=== PATIENT | female | born 1950 | race African-American/Black ===

== ENCOUNTER 2019-07-09 11:20 | Emergency (ER) | payer MEDICARE, OTHER ==
[~2019-07-09] VITALS: Ht 160 cm; Wt 59.0 kg
[~2019-07-09 11:20] MED LIST: ALBUTEROL SULF8.5 GM INH; AZITHROMYCIN250 MG ORAL; BACTRIM DS TAB1 EAC1 ORAL; KEFLEX500 MG ORAL; NORCO 5-325 TA1 EACH ORAL; PREDNISONE20 MG ORAL; TRAMADOL HCL50 MG ORAL
[2019-07-09 11:31] VITALS: BP 102/72
--- NOTE | 2019-07-09 11:33 | NUR ---
ED Nurse Note: pt from home walked in c/o rt neck shoulder and arm pain denies and injury . ermd at bedside awaiting orders.
[2019-07-09 11:45] VITALS: BP 117/66
[2019-07-09] MEDS ORDERED: Omnipaue 350mg/ml 100ml vial INJ PRN (11:45)
--- NOTE | 2019-07-09 11:45 | NUR ---
ED Nurse Note: per Dr. Jefferson's request pt moved to bed 8 for further testing and monitoring. Report given to Sarah MATRIN.
--- NOTE | 2019-07-09 11:45 | NUR ---
ED Nurse Note: Patient walked in to ER, complaining of shulder pain that radiates to upper and lower back and right arm with a pain scale of 9/10. Patient stated that she feels stabbing pain and numbness on her right fingers. No grimacing noted. No swelling noted. Patient is able to move her right extremity without difficulty.
[2019-07-09 12:45] VITALS: BP 117/66
--- NOTE | 2019-07-09 12:46 | NUR ---
ED Nurse Patient was laying in bed comfortably, X-ray done.
[2019-07-09 12:49] LABS: ANION GAP 11 mmol/L (5-15); BLOOD UREA NITROGEN 16 mg/dL (7-18); CALCIUM 9.4 MG/DL (8.5-10.1); CARBON DIOXIDE 27 MMOL/L (21-32); CHLORIDE 103 MMOL/L (98-107); INR 0.9 (0.9-1.1); POTASSIUM 3.4 MMOL/L (3.5-5.1); SODIUM 141 MMOL/L (136-145)
--- NOTE | 2019-07-09 12:52 | NUR ---
ED Nurse Note: Patient was brought to the CT room for CTA chest with contrast. No respiartory distress noted. Able to transfer from bed to wheelchair without difficulty.
[2019-07-09 12:53] LABS: BASOPHILS % (AUTO) 1.1 % (0.0-2.0); EOSINOPHILS % (AUTO) 0.4 % (0.0-3.0); HEMATOCRIT 50.5 % (37.0-47.0); HEMOGLOBIN 16.3 G/DL (12.0-16.0); LYMPHOCYTES % (AUTO) 46.7 % (20.0-45.0); MEAN CORPUSCULAR VOLUME 94 FL (80-99); MONOCYTES % (AUTO) 4.4 % (1.0-10.0); NEUTROPHILS % (AUTO) 47.3 % (45.0-75.0); PLATELET COUNT 259 K/UL (150-450); RED BLOOD COUNT 5.38 M/UL (4.20-5.40); RED CELL DISTRIBUTION WIDTH 12.4 % (11.6-14.8); WHITE BLOOD COUNT 9.5 K/UL (4.8-10.8)
[2019-07-09 13:02] LABS: ALANINE AMINOTRANSFERASE 20 U/L (12-78); ALBUMIN 3.9 G/DL (3.4-5.0); ALBUMIN/GLOBULIN RATIO 0.8 (1.0-2.7); ALKALINE PHOSPHATASE 102 U/L (46-116); ASPARTATE AMINO TRANSFERASE 17 U/L (15-37); BILIRUBIN,TOTAL 0.1 MG/DL (0.2-1.0); CKMB 1.1 NG/ML (0.0-3.6); CREATINE KINASE 104 U/L (26-308)
--- NOTE | 2019-07-09 13:20 | NUR ---
Patient came back from the CT room, still complaining of pain on her right shoulder extending to right arm. Repositioned the patient. Provide rest. 8 oz of Wasatch juice given for low blood sugar per MD order. Awaiting for the CT scan results Addendum: 07/09/19 at 1333 by SBATALLA ED Nurse Note: Patient came back from the CT room, still complaining of pain on her right shoulder extending to right arm. Repositioned the patient. Provide rest. 8 oz of Wasatch juice given for low blood sugar per MD order. Awaiting for the CT scan results
[2019-07-09] MEDS ORDERED: Morphine Sulfate 2mg/ml Inj(IV/IM USE ONLY) IVP ONE (13:45)
[2019-07-09 14:00] VITALS: BP 139/73
--- NOTE | 2019-07-09 14:15 | NUR ---
ED Nurse Note: Patient laying in bed, resting comfortably. no guarding noted. no facial grimacing. Patient verbalized that the pain medication worked and her pain is down to 2/10. Patient able sit from laying position without pain and difficulty.
--- NOTE | 2019-07-09 14:51 | Diagnostic Imaging Report ---
Indication: Chest pain Technique: Continuous helical transaxial imaging of the chest was obtained from the thoracic inlet to the upper abdomen during rapid intravenous contrast administration. Arterial phase of enhancement obtained. Coronal 2-D reformats were also obtained and maximum intensity projection images in multiple planes. Study obtained in a Siemens sensation [address] Automatic Exposure Control was utilized. Total Dose length Product (DLP): 763.[address] Dose Index Volume (CTDIvol): 35 mGy Comparison: None Findings: The pulmonary artery is well opacified and shows no filling defects. There is no adenopathy, pleural or pericardial effusions are identified. There is no aortic dissection or aneurysm identified within the chest. There is mild basal atelectasis.. Visualized part of the upper abdomen is unremarkable. IMPRESSION: No evidence of pulmonary embolus, aortic dissection or aneurysm. Mild basal atelectasis The CT scanner at [facility] is accredited by the [employer] and the scans are performed using dose optimization techniques as appropriate to a performed exam including Automatic Exposure control.
[2019-07-09] MEDS ORDERED: NORCO 5-325 TA1 EACH ORAL (14:56)
[2019-07-09 15:00] VITALS: BP 122/86
[2019-07-09 15:11] VITALS: BP 124/80
--- NOTE | 2019-07-09 15:11 | NUR ---
ER DISCHARGE NOTE: Patient is cleared to be discharged per ERMD, pt is aox4, on room air, with stable vital signs. pt was given dc and prescription instructions, pt was able to verbalize understanding, pt id band and iv site removed without complications. pt is able to ambulate with steady gait. pt took all belongings. nephew accompanied the patient.
--- NOTE | 2019-07-09 15:58 | Diagnostic Imaging Report ---
Indication: Chest pain Comparison: 12/11/2011 A single view chest radiograph was obtained. Findings: Cardiomediastinal appearance is within normal limits for age. The lungs are clear. Pulmonary vascularity is appropriate. The diaphragmatic contour is smooth and costophrenic angles are sharp. No pleural effusions are identified. The bones are unremarkable. Impression: No acute findings
--- NOTE | 2019-07-09 22:31 | Emergency Room Report ---
History of Present Illness General Chief Complaint: Pain Source: Medical Record Present Illness HPI Patient is a 69 year old female with increased right shoulder pain for 2 day. Pain had worsened over 2 days. Prior history of COPD and smoking. Patient reports having significant pain worsening predominantly in the right shoulder. She denies any recent trauma. This is worsened overnight. Patient also reports having some pain to her lower extremities. She denies any fever. She had not been vomiting. 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 Allergies: Coded Allergies: IBUPROFEN (Verified Allergy, Unknown, 06/09/10) Patient History Past Medical History: see triage record Reviewed Nursing Documentation: PMH: Agreed; PSxH: Agreed Nursing Documentation-PMH Past Medical History: No History, Except For Hx Cardiac Problems: Yes - [place] 1996 Hx COPD: Yes Review of Systems All Other Systems: negative except mentioned in HPI Physical Exam Vital Signs Date Time Temp Pulse Resp B/P (MAP) Pulse Ox O2 Delivery O2 Flow Rate FiO2 07/09/19 11:24 98.2 103 18 102/72 (82) 96 Room Air Sp02 EP Interpretation: reviewed, normal General Appearance: normal inspection, well appearing, no apparent distress, alert Head: atraumatic Eyes: bilateral eye other - disconjugate gaze ENT: normal ENT inspection, hearing grossly normal, normal voice Neck: normal inspection, full range of motion, supple, no bony tend Respiratory: normal inspection, lungs clear, normal breath sounds, no respiratory distress, no retraction, no wheezing Cardiovascular #1: regular rate, rhythm, no edema Gastrointestinal: normal inspection, normal bowel sounds, non tender, soft, no guarding, no hernia Genitourinary: no CVA tenderness Musculoskeletal: normal inspection, back normal, normal range of motion Neurologic: normal inspection, alert, oriented x3, responsive, geoint analyst III-XII nml as tested, motor strength/tone normal, speech normal Psychiatric: normal inspection, judgement/insight normal, mood/affect normal Medical Decision Making Diagnostic Impression: Primary Impression: Shoulder pain, acute Additional Impression: COPD with acute bronchitis ER Course Patient presented for right shoulder pain. Differential diagnoses included was not limited to septic joint, vascular compromise, pulmonary embolism, fracture, dislocation, a.c. separation, septic joint. Because of complexity of patient's case laboratory tests and imaging studies were ordered. Patient's laboratory testing was unremarkable. Patient was noted to have negative troponin. CT angiogram of the chest showed no evidence of aortic dissection or pulmonary embolism. Patient given pain medications. Patient was noted to have some slight difference in pulses between the right upper extremity left upper extremity patient was advised to recheck with her primary care physician for further evaluation and work-up. She was advised to return if worse. Labs Test 07/09/19 12:20 White Blood Count 9.5 K/UL (4.8-10.8) Red Blood Count 5.38 M/UL (4.20-5.40) Hemoglobin 16.3 G/DL (12.0-16.0) Hematocrit 50.5 % (37.0-47.0) Mean Corpuscular Volume 94 FL (80-99) Mean Corpuscular Hemoglobin 30.3 PG (27.0-31.0) Mean Corpuscular Hemoglobin Concent 32.2 G/DL (32.0-36.0) Red Cell Distribution Width 12.4 % (11.6-14.8) Platelet Count 259 K/UL (150-450) Mean Platelet Volume 5.0 FL (6.5-10.1) Neutrophils (%) (Auto) 47.3 % (45.0-75.0) Lymphocytes (%) (Auto) 46.7 % (20.0-45.0) Monocytes (%) (Auto) 4.4 % (1.0-10.0) Eosinophils (%) (Auto) 0.4 % (0.0-3.0) Basophils (%) (Auto) 1.1 % (0.0-2.0) Prothrombin Time 10.0 SEC (9.30-11.50) Prothromb Time International Ratio 0.9 (0.9-1.1) Activated Partial Thromboplast Time 25 SEC (23-33) Sodium Level 141 MMOL/L (136-145) Potassium Level 3.4 MMOL/L (3.5-5.1) Chloride Level 103 MMOL/L (98-107) Carbon Dioxide Level 27 MMOL/L (21-32) Anion Gap 11 mmol/L (5-15) Blood Urea Nitrogen 16 mg/dL (7-18) Creatinine 1.0 MG/DL (0.55-1.30) Estimat Glomerular Filtration Rate > 60 mL/min (>60) Glucose Level 58 MG/DL (74-106) Calcium Level 9.4 MG/DL (8.5-10.1) Total Bilirubin 0.1 MG/DL (0.2-1.0) Aspartate Amino Transf (AST/SGOT) 17 U/L (15-37) Alanine Aminotransferase (ALT/SGPT) 20 U/L (12-78) Alkaline Phosphatase 102 U/L (46-116) Total Creatine Kinase 104 U/L (26-308) Creatine Kinase MB 1.1 NG/ML (0.0-3.6) Creatine Kinase MB Relative Index 1.0 Troponin I 0.000 ng/mL (0.000-0.056) Pro-B-Type Natriuretic Peptide 113 pg/mL (0-125) Total Protein 8.7 G/DL (6.4-8.2) Albumin 3.9 G/DL (3.4-5.0) Globulin 4.8 g/dL Albumin/Globulin Ratio 0.8 (1.0-2.7) EKG Diagnostic Results Rate: normal Rhythm: NSR ST Segments: no acute changes Last Vital Signs Date Time Temp Pulse Resp B/P (MAP) Pulse Ox O2 Delivery O2 Flow Rate FiO2 07/09/19 15:11 97.8 83 16 124/80 Room Air 07/09/19 14:00 99 Status: improved Disposition: HOME, SELF-CARE Condition: Stable Scripts Hydrocodone Bit/Acetaminophen 5-325* (NORCO 5-325*) 1 Each Tablet 1 TAB ORAL Q6H PRN for For Pain, #20 TAB 0 Refills Prov: Shant Jefferson MD 07/09/19 Patient Instructions: Shoulder Pain Shant Jefferson MD Jul 09, 2019 22:31
== END 2019-07-09 15:11 | disposition home or self-care (01) ==
LOC: EMR 11:57
DX: M25.511 Pain in right shoulder (principal); J44.0 Chronic obstructive pulmonary disease with (acute) lower respiratory infection; J20.9 Acute bronchitis, unspecified; I25.2 Old myocardial infarction; Z88.8 Allergy status to other drugs, medicaments and biological substances; F17.200 Nicotine dependence, unspecified, uncomplicated; Z86.73 Personal history of transient ischemic attack (TIA), and cerebral infarction without residual deficits
CPT/HCPCS: 36415; 71045; 71275; 80053; 82550; 82553; 83880; 84484; 85025; 85610; 85730; 93005; 96374; 99284; J2270; Q9967